=== PATIENT | female | born 1960 | race Caucasian/White ===

== ENCOUNTER → 2017-04-20 | Day surgery (SDC) | payer BC ==
[2017-04-06 10:36] VITALS: Ht 171.5 cm; Wt 79.5 kg
[~2017-04-20] VITALS: Ht 171.5 cm; Wt 79.5 kg
[~2017-04-20] MED LIST: CHOL1000 PO; CITA10TA8 PO; CYM/30 PO; LIDOCAINE HCL 2% 2 ML VIAL (20MG/ML) ONE; MULT-506 PO; OMEG10007 PO; PROPOFOL IV EMULSION 10 MG/ML 20 ML VIAL IV ONE; PSEU30TA20 PO
[2017-04-20 13:47] VITALS: TEMP 37.1
--- NOTE | 2017-04-20 14:23 | Endo History and Physical ---
History & Physical Date of Service: Apr 20, 2017. Chief Complaint: SCREENING Referring Physician: DR ROWE History of Present Illness 56 yo CF who presents for screening colonoscopy. Past Surgical History Hx Cardiac Surgery: No Hx Internal Defibrillator: No Hx Pacemaker: No Hx Abdominal Surgery: No Hx of Implantable Prosthesis: No Hx Post-Op Nausea and Vomiting: Yes Hx Cancer Surgery: No Hx Thoracic Surgery: No Hx Orthopedic: Yes (LEFT WRIST SX) Hx Urinary Tract Surgery: No Family History Polyp Social History Smoking Status: Never Smoker Hx Substance Use: No Hx Alcohol Use: Yes (VERY RARELY) Allergies Coded Allergies: NO KNOWN DRUG ALLERGIES (Verified Allergy, Unknown, ., 04/20/17) Current Medications Reported Home Medications Medications Dose Route/Sig Max Daily Dose Days Date Category Sudafed (Pseudoephedrine HCl) 30 Mg Tab 30 Mg PO QAM 04/06/17 Reported Vitamin D3 (Cholecalciferol) 1,000 Unit Tab 1 Tab PO QAM 90 04/06/17 Reported [place]-3 (Fish Oil) 1 Ea Cap 1 Cap PO QAM 04/06/17 Reported Multivitamin (Multivitamins) Tab 1 Tab PO QAM 04/06/17 Reported Cymbalta (Duloxetine HCl) 30 Mg Cap 1 Cap PO QAM 30 04/06/17 Reported Celexa (Citalopram Hydrobromide) 10 Mg Tab 10 Mg PO QAM 04/06/17 Reported Vital Signs Weight (Kilograms): 79.55 Height (Feet): 5 Height (Inches): 7.5 Date Time Temp Pulse Resp B/P (MAP) Pulse Ox O2 Delivery O2 Flow Rate FiO2 04/20/17 13:47 37.1 77 18 130/67 (88) 95 Room Air Physical Exam General Appearance: WD/WN, no apparent distress Respiratory/Chest: Auscultation: breath sounds normal Cardiovascular: Heart Auscultation: RRR Abdomen: Bowel Sounds: normal Inspection & Palpation: soft, non-distended, no tenderness, guarding & rebound Assessment and Plan Assessment: 56 yo CF who presents for screening colonoscopy. Plan: Proceed with colonoscopy.
--- NOTE | 2017-04-20 14:50 | Discharge Instructions ---
Endoscopy Patient Instructions Date / Procedure(s) Performed Apr 20, 2017. Colonoscopy Allergy Information Coded Allergies: NO KNOWN DRUG ALLERGIES (Verified Allergy, Unknown, ., 04/20/17) Discharge Date / Findings Apr 20, 2017. Diverticulosis Internal hemorrhoids Medication Instructions OK to resume all medications today as prescribed Reported Home Medications Medications Dose Route/Sig Max Daily Dose Days Date Category Sudafed (Pseudoephedrine HCl) 30 Mg Tab 30 Mg PO QAM 04/06/17 Reported Vitamin D3 (Cholecalciferol) 1,000 Unit Tab 1 Tab PO QAM 90 04/06/17 Reported Freeman-3 (Fish Oil) 1 Ea Cap 1 Cap PO QAM 04/06/17 Reported Multivitamin (Multivitamins) Tab 1 Tab PO QAM 04/06/17 Reported Cymbalta (Duloxetine HCl) 30 Mg Cap 1 Cap PO QAM 30 04/06/17 Reported Celexa (Citalopram Hydrobromide) 10 Mg Tab 10 Mg PO QAM 04/06/17 Reported Provider Instructions Activity Restrictions - No exercising or heavy lifting for 24 hours. - Do not drink alcohol the day of the procedure. - Do not drive a car or operate machinery until the day after the procedure. - Do not make any important decisions or sign important papers in 24 hours after the procedure. Following Day: - Return to full activity which may include returning to work/school. Diet Start your diet with liquids and light foods (jello, soup, juice, toast). Then eat your usual diet if not nauseated. Treatment For Common After Affects For mild abdominal pain, bloating, or excessive gas: - Rest - Eat lightly - Lie on right side Follow-Up Information Follow-up with DR ROWE as scheduled Anesthesia Information What You Should Know You have had a procedure that required some medicine to reduce anxiety and discomfort. This treatment is called moderate sedation. After receiving the treatment, you may be sleepy, but you will be able to breathe on your own. The effects of the treatment may last for several hours. Follow these instructions along with Activity/Diet recommendations noted above: * Do NOT do anything where dizziness or clumsiness would be dangerous. * Rest quietly at home today, then you can be up and about tomorrow. * Have a responsible person stay with you the rest of today. * You may have had an I.V. today. If so, you may take the dressing off later today. Recommendations Call your doctor if: * Trouble breathing * Continuous vomiting for more than 24 hours * Temperature above 101 degrees * Severe abdominal pain or bloating * Pain not relieved by pain medicine ordered * There is increased drainage or redness from any incision * A large amount of rectal bleeding greater than 2-3 tablespoons. (If you had a polyp/s removed or have hemorrhoids, a small amount of blood - from the rectum is to be expected.) * You have any unanswered questions or concerns. IN THE EVENT OF A SERIOUS EMERGENCY, GO TO THE NEAREST EMERGENCY ROOM Your discharge instructions were prepared by provider Lui Koehler. Patient Instructions Signature Page Kaya Mondragon Patient (or Guardian) Signature/Date: I have read and understand the instructions given to me by my caregivers. Caregiver/RN/Doctor Signature/Date: The above-named patient and/or guardian has received patient instructions on this date. + Original Patient Signature Page (only) stays with chart. Please make copy for patient.
--- NOTE | 2017-04-20 15:01 | GI REPORT ---
Procedure Date: 04/20/2017 2:08 PM Procedure: Colonoscopy Indications: Screening for colorectal malignant neoplasm Medicines: Monitored Anesthesia Care Complications: No immediate complications. Estimated Blood Loss: Estimated blood loss: none. Procedure: Pre-Anesthesia Assessment: - Prior to the procedure, a History and Physical was performed, and patient medications and allergies were reviewed. The patient's tolerance of previous anesthesia was also reviewed. The risks and benefits of the procedure and the sedation options and risks were discussed with the patient. All questions were answered, and informed consent was obtained. Prior Anticoagulants: The patient has taken no previous anticoagulant or antiplatelet agents. ASA Grade Assessment: II - A patient with mild systemic disease. After reviewing the risks and benefits, the patient was deemed in satisfactory condition to undergo the procedure. After I obtained informed consent, the scope was passed under direct vision. Throughout the procedure, the patient's blood pressure, pulse, and oxygen saturations were monitored continuously. The scope was introduced through the anus and advanced to the terminal ileum. The colonoscopy was performed without difficulty. The patient tolerated the procedure well. The quality of the bowel preparation was good. The terminal ileum, ileocecal valve, appendiceal orifice, and rectum were photographed. Findings: Multiple small-mouthed diverticula were found in the sigmoid colon. Non-bleeding internal hemorrhoids were found during retroflexion. The hemorrhoids were small. Impression: - Diverticulosis in the sigmoid colon. - Non-bleeding internal hemorrhoids. - No specimens collected. Recommendation: - Resume previous diet. - Continue present medications. - Repeat colonoscopy in 10 years for surveillance. - Return to primary care physician as previously scheduled. Lui Koehler, DO 04/20/2017 3:00:49 PM This report has been signed electronically. Note Initiated On: 04/20/2017 2:08 PM I attest to the content of the Intraoperative Record and orders documented therein, exceptions below
--- NOTE | 2017-04-20 15:13 | Anesthesiology Progress Note ---
Anesthesia Post Op Note Date & Time Apr 20, 2017 at 15:12 Vital Signs Pain Intensity: 0 Vital Signs Past 12 Hours Date Time Temp Pulse Resp B/P (MAP) Pulse Ox O2 Delivery O2 Flow Rate FiO2 04/20/17 15:00 82 20 107/72 (84) 98 Room Air 04/20/17 14:45 78 20 93/47 (62) 95 Room Air 04/20/17 13:47 37.1 77 18 130/67 (88) 95 Room Air Notes Mental Status: alert / awake / arousable, participated in evaluation Pt Amnestic to Procedure: Yes Nausea / Vomiting: adequately controlled Pain: adequately controlled Airway Patency, RR, SpO2: stable & adequate BP & HR: stable & adequate Hydration State: stable & adequate Anesthetic Complications: no major complications apparent
[2017-04-20 15:15] VITALS: BP 103/59; PULSE 71; O2SAT 99
== END | disposition home or self-care (01) ==
LOC: C.GI 13:03
PROVIDERS: ATTEND Internal Medicine
DX: Z12.11 Encounter for screening for malignant neoplasm of colon (principal); K57.30 Diverticulosis of large intestine without perforation or abscess without bleeding; K64.8 Other hemorrhoids; Z83.71 Family history of colonic polyps

== ENCOUNTER → 2017-08-10 | Outpatient (CLI) | payer BC ==
[~2017-08-10] MED LIST changes: -LIDOCAINE HCL 2% 2 ML VIAL (20MG/ML) ONE; -PROPOFOL IV EMULSION 10 MG/ML 20 ML VIAL IV ONE
--- NOTE | 2017-08-12 08:13 | MAMMOGRAPHY REPORT ---
BILATERAL DIGITAL SCREENING MAMMOGRAM TOMOSYNTHESIS WITH CAD: 08/10/2017 CLINICAL HISTORY: Routine screening. Patient has no complaints. TECHNIQUE: Breast tomosynthesis in addition to standard 2D mammography was performed. Current study was also evaluated with a Computer Aided Detection (CAD) system. COMPARISON: Comparison is made to mammograms dated: 05/02/2008, 11/18/2008, 11/18/2008, 05/15/2008, and . BREAST COMPOSITION: There are scattered areas of fibroglandular density in both breasts. FINDINGS: There have been involutional changes comparing to prior available mammograms. No new suspi cious mass, architectural distortion or cluster of microcalcifications is seen. IMPRESSION: ACR BI-RADS CATEGORY 1: NEGATIVE There is no mammographic evidence of malignancy. A 1 year screening mammogram is recommended. The pa tient will receive written notification of the results. Approximately 10% of breast cancers are not detected with mammography. A negative mammographic report should not delay biopsy if a clinically suggestive mass is present. Sharmin Alatorre M.D. ay/:08/10/2017 16:27:39 Explosives Handler: Meghan Miles, [facility] letter sent: Normal 1/2 BI-RADS Code: ACR BI-RADS Category 1: Negative
== END | disposition home or self-care (01) ==
LOC: C.MAMM 12:57
PROVIDERS: ATTEND Family Medicine
DX: Z12.31 Encounter for screening mammogram for malignant neoplasm of breast (principal)

== ENCOUNTER 2017-09-28 21:19 | Emergency (ER) | payer BC ==
[~2017-09-28] VITALS: Ht 170.2 cm; Wt 82.3 kg
[2017-09-28 21:19] VITALS: TEMP 36.8; Ht 170.2 cm; Wt 82.3 kg
[2017-09-28] MEDS ORDERED: MULT-1092 PO (21:47)
[2017-09-28] MEDS ORDERED: CALC500T83 PO (21:47)
[2017-09-28] MEDS ORDERED: OXYCODONE HCL IR 5 MG TAB (IMMEDIATE RELEASE) PO STA (21:50)
[2017-09-28] MEDS ORDERED: ACETAMINOPHEN 500 MG TAB PO STA (21:50)
--- NOTE | 2017-09-28 21:51 | EMERGENCY ROOM VISIT NOTE ---
History Report prepared by Michelle: Fina Hernandez Under the Supervision of: Dr. Fernando Contreras M.D. First contact with patient: 21:39 Chief Complaint: SHOULDER PAIN Stated Complaint: LEFT ARM & SHOULDER PAIN History of Present Illness The patient is a 56 year old female who presents to the Emergency Room with complaints of an episode of a fall occurring just prior to arrival. The patient was ice skating when she fell onto the left arm and hurt her left shoulder. She denies hitting her head or loosing consciousness. The patient reports that she has a history of breaking her left wrist and having metal hardware placed in her wrist. She denies any abdominal pain or back pain. She notes her pain worsens when she moves her arm in towards her body. Source of History: patient Onset: just prior to arrival Position: other (generalized) Quality: other (fall) Timing: other (episode) Modifying Factors (Worsening): other (moving arm in towards her body) Associated Symptoms: No LOC, No abdominal pain, No back pain Note: Pt notes left arm and shoulder pain. Review of Systems See HPI for pertinent positives and negatives. A total of ten systems were reviewed and were otherwise negative. Past Medical & Surgical Medical Problems: (1) No Known Active Medical Problems Family History Patient reports no known family medical history. Social History Smoking Status: Never Smoker Marital Status: Housing Status: lives with significant other Current/Historical Medications Scheduled Calcium (Calcium), 1 TAB PO DAILY Cholecalciferol (Vitamin D3), 1,000 INTER.UNIT PO QAM Citalopram Hydrobromide (Celexa), 10 MG PO QAM Duloxetine HCl (Cymbalta), 30 MG PO QAM Fish Oil ([place]-3), 1 CAP PO QAM Multiple Vitamins W/ Minerals (Centrum Silver 50+Women), 1 TAB PO DAILY Ondasetron Odt (Zofran Odt), 4 MG SL Q6H Scheduled PRN Oxycodone Ir (Roxicodone Ir), 1-2 TAB PO Q4H PRN for Pain Allergies Coded Allergies: No Known Allergies (Unverified , 09/28/17) Physical Exam Vital Signs Date Time Temp Pulse Resp B/P (MAP) Pulse Ox O2 Delivery O2 Flow Rate FiO2 09/29/17 00:50 80 16 116/75 96 1/11/18 00:40 89 16 116/76 96 09/29/17 00:18 75 16 105/56 96 09/29/17 00:15 71 16 78/38 96 Room Air 09/28/17 23:01 88 16 110/85 96 Room Air 09/28/17 21:19 36.8 80 16 124/54 99 Room Air Physical Exam GENERAL: Awake, alert, uncomfortable-appearing, in no distress HENT: Normocephalic, atraumatic. Oropharynx unremarkable. EYES: Normal conjunctiva. Sclera non-icteric. NECK: Supple. No nuchal rigidity. FROM. No JVD. RESPIRATORY: Clear to auscultation. CARDIAC: Regular rate, normal rhythm. Extremities warm and well perfused. Pulses equal. ABDOMEN: Soft, non-distended. No tenderness to palpation. No rebound or guarding. No masses. RECTAL: Deferred. MUSCULOSKELETAL: Deformity of left proximal humerus, axillary nerve intact, distal PMS intact Chest examination reveals no tenderness. The back is symmetrical on inspection without obvious abnormality. There is no CVA tenderness to palpation. No joint edema. LOWER EXTREMITIES: Calves are equal size bilaterally and non-tender. No edema. No discoloration. NEURO: Normal sensorium. No sensory or motor deficits noted. SKIN: No rash or jaundice noted. Medical Decision & Procedures ER Provider Diagnostic Interpretation: Radiology results as stated below per my review and radiologist interpretation: CHEST ONE VIEW PORTABLE FINDINGS: An acute proximal left humeral fracture is better depicted on the left shoulder radiographs. There is no pneumothorax or pleural effusion. There is mild dextroscoliosis of the thoracic spine. Cardiac size is normal. Pulmonary vascularity is normal. There is no consolidation. IMPRESSION: 1. No acute cardiopulmonary findings. 2. Acute proximal left humeral fracture better depicted on the left shoulder radiographs. Electronically signed by: Teddy Perez HUMERUS MIN 2 VIEWS ROUTINE FINDINGS: Note is made of an acute mildly displaced fracture of the left humeral neck which extends into the humeral head. Moderate angulation of the fracture is noted. Alignment of the left acromioclavicular and glenohumeral joints remains anatomic. No additional left humeral fractures are identified. IMPRESSION: Acute mildly displaced comminuted left humeral neck fracture which extends into the humeral head. Moderate angulation. Electronically signed by: Teddy Perez SHOULDER MIN 2 VIEWS ROUTINE FINDINGS: Note is made of an acute mildly displaced fracture of the left humeral neck which extends into the humeral head. Moderate angulation of the fracture is noted. Alignment of the left acromioclavicular and glenohumeral joints remains anatomic. IMPRESSION: Acute mildly displaced comminuted left humeral neck fracture which extends into the humeral head. Moderate angulation. Electronically signed by: Walker Baldwin M.D. Medications Administered Medications (Trade) Dose Ordered Sig/Nelson Route Start Time Stop Time Status Last Admin Dose Admin Oxycodone HCl (Roxicodone Immediate Rel Tab) 5 mg NOW STAT PO 09/28/17 21:50 09/28/17 21:53 DC 09/28/17 21:58 5 MG Acetaminophen (Tylenol Tab) 1,000 mg NOW STAT PO 09/28/17 21:50 09/28/17 21:53 DC 09/28/17 21:58 1,000 MG Fentanyl Citrate (Fentanyl Inj) 100 mcg NOW ONCE IM 09/29/17 00:00 09/29/17 00:01 DC 09/28/17 23:54 100 MCG Ondansetron HCl (Zofran Odt) 4 mg NOW STAT PO 09/29/17 00:18 09/29/17 00:20 DC 09/29/17 00:23 4 MG ED Course 2145: The patient was evaluated in room A12B. A complete history and physical exam was performed. 2347: I discussed the patient with Dr. Henderson-Orthopedics - He will follow up with the patient as an outpatient. Medical Decision I reviewed the patient's past medical history, medications, and the nursing notes as described above. Differential diagnoses: fracture, dislocation, ligamentous injury, soft tissue injury. The patient is a 56-year-old woman who presents emergency Department with left shoulder pain after having a fall while ice skating per hpi. While the patient is uncomfortable but in no acute distress, afebrile stable vital signs. Has a subtle deformity to her left proximal humerus. Axillary nerve and distal PMS intact. X-ray notable for humeral neck fracture extending slightly into the humeral head with slight angulation. Case was discussed with Dr. Henderson, orthopedist on-call, who agrees with plan for pain control and sling. Patient to call the office tomorrow for follow-up. Findings and plan for follow-up reviewed with patient. Patient agreeable and d/c'd per discharge instructions. Medication Reconcilliation Current Medication List: was personally reviewed by me Blood Pressure Screening Patient's blood pressure: Normal blood pressure Consults Time Called: [id number] Consulting Physician: Dr. Henderson-Orthopedics Returned Call: [phone] I discussed the patient with Dr. SaulOrthopedics - He will follow up with the patient as an outpatient. Impression Primary Impression: Fracture, humerus, neck Additional Impression: Fracture, humerus, head Scribe Attestation The scribe's documentation has been prepared under my direction and personally reviewed by me in its entirety. I confirm that the note above accurately reflects all work, treatment, procedures, and medical decision making performed by me. Departure Information Dispostion Home / Self-Care Prescriptions Ondasetron Odt (ZOFRAN ODT) 4 Mg Tab 4 MG SL Q6H for Nausea, #6 TAB Prov: Fernando Contreras M.D. 09/29/17 Oxycodone Ir (Roxicodone Ir) 5 Mg Tab 1-2 TAB PO Q4H Y for Pain, #15 TAB Prov: Fernando Contreras M.D. 09/29/17 Referrals Rome Osorio M.D. (PCP) J Carlos Henderson M.D. Forms HOME CARE DOCUMENTATION FORM, IMPORTANT VISIT INFORMATION Patient Instructions ED Monique and Jessica, Humerus Fx, My [facility] Additional Instructions Please follow up with orthopedics, Dr. Henderson, tomorrow to arrange for an appointment for re-evaluation. Your were found to have a humeral neck fracture that also involves the humeral head. Otherwise, your exam and xrays did not show signs of an emergent condition at this time. Acetaminophen for pain as needed. Oxycodone for breakthrough pain as needed. Zofran for nausea as needed. Sling for comfort. Return to the emergency department for worsening symptoms as described in the accompanying instructions. Problem Qualifiers
--- NOTE | 2017-09-28 23:14 | DIAGNOSTIC IMAGING REPORT ---
CHEST ONE VIEW PORTABLE CLINICAL HISTORY: clavicle pain fall COMPARISON STUDY: No previous studies for comparison. FINDINGS: An acute proximal left humeral fracture is better depicted on the left shoulder radiographs. There is no pneumothorax or pleural effusion. There is mild dextroscoliosis of the thoracic spine. Cardiac size is normal. Pulmonary vascularity is normal. There is no consolidation. IMPRESSION: 1. No acute cardiopulmonary findings. 2. Acute proximal left humeral fracture better depicted on the left shoulder radiographs. Electronically signed by: Walker Baldwin M.D. 09/28/2017 11:13 PM Dictated Date/Time: 09/28/2017 11:11 PM
--- NOTE | 2017-09-28 23:17 | DIAGNOSTIC IMAGING REPORT ---
L HUMERUS MIN 2 VIEWS ROUTINE CLINICAL HISTORY: shoulder arm pain fall COMPARISON: None FINDINGS: Note is made of an acute mildly displaced fracture of the left humeral neck which extends into the humeral head. Moderate angulation of the fracture is noted. Alignment of the left acromioclavicular and glenohumeral joints remains anatomic. No additional left humeral fractures are identified. IMPRESSION: Acute mildly displaced comminuted left humeral neck fracture which extends into the humeral head. Moderate angulation. Electronically signed by: Walker Baldwin M.D. 09/28/2017 11:16 PM Dictated Date/Time: 09/28/2017 11:15 PM
--- NOTE | 2017-09-28 23:17 | DIAGNOSTIC IMAGING REPORT ---
L SHOULDER MIN 2 VIEWS ROUTINE CLINICAL HISTORY: shoulder pain fall COMPARISON: None FINDINGS: Note is made of an acute mildly displaced fracture of the left humeral neck which extends into the humeral head. Moderate angulation of the fracture is noted. Alignment of the left acromioclavicular and glenohumeral joints remains anatomic. IMPRESSION: Acute mildly displaced comminuted left humeral neck fracture which extends into the humeral head. Moderate angulation. Electronically signed by: Walker Baldwin M.D. 09/28/2017 11:15 PM Dictated Date/Time: 09/28/2017 11:13 PM
[2017-09-29] MEDS ORDERED: FENTANYL CITRATE INJ 50 MCG/1 ML 2 ML VIAL IM ONE
[2017-09-29] MEDS ORDERED: ONDANSETRON 4MG OD TAB PO STA (00:18)
[2017-09-29] MEDS ORDERED: OXYC1TAB3 PO (00:20)
[2017-09-29] MEDS ORDERED: ONDA4TAB10 SL (00:20)
[2017-09-29 00:50] VITALS: BP 116/75; PULSE 80; O2SAT 96
== END 2017-09-29 00:50 | disposition home or self-care (01) ==
LOC: EDBD 21:19 → C.EDA 21:21
DX: S42.202A Unspecified fracture of upper end of left humerus, initial encounter for closed fracture (principal); S42.292A Other displaced fracture of upper end of left humerus, initial encounter for closed fracture; W19.XXXA Unspecified fall, initial encounter; Y93.21 Activity, ice skating; Z79.899 Other long term (current) drug therapy

== ENCOUNTER → 2017-11-15 | Outpatient (CLI) | payer BC ==
[~2017-11-15] MED LIST changes: +CALC500T83 PO; +MULT-1092 PO; -MULT-506 PO; +ONDA4TAB10 SL; +OXYC1TAB3 PO; -PSEU30TA20 PO
== END | disposition home or self-care (01) ==
LOC: C.PAPS 16:45
PROVIDERS: ATTEND Obstetrics & Gynecology
DX: Z01.419 Encounter for gynecological examination (general) (routine) without abnormal findings (principal); Z11.51 Encounter for screening for human papillomavirus (HPV); Z78.0 Asymptomatic menopausal state